=== PATIENT | male | born 1985 | race Caucasian/White ===

== ENCOUNTER 2016-08-04 18:26 | Emergency (ER) | payer BC ==
[2016-08-04 20:02] LABS: HEMOGLOBIN 15.1 gm/dl (14.0-17.5); RED BLOOD COUNT 4.91 M/UL (4.20-5.50); WHITE BLOOD COUNT 12.7 K/UL (4.5-11.0)
[2016-08-04 20:33] LABS: BUN/CREATININE RATIO 8 (0-10)
== END 2016-08-05 00:05 | disposition short-term general hospital (02) ==
LOC: ER1 18:26
PROVIDERS: Family Medicine
DX: R55 Syncope and collapse (principal); F17.200 Nicotine dependence, unspecified, uncomplicated; Z79.891 Long term (current) use of opiate analgesic
CPT/HCPCS: 70450; 71010; 80053; 80307; 81001; 82550; 82553; 83874; 84146; 84484; 85025; 93005; 99285

== ENCOUNTER 2021-01-12 19:24 | Emergency (ER) | payer SELFPAY ==
[~2021-01-12 19:24] MED LIST: CLEOCIN 150MG150 MG PO
[2021-01-12] MEDS ORDERED: PROAIR HFA8.5 GM INH (23:44)
[2021-01-12] MEDS ORDERED: AMOXICILLIN875 MG PO (23:44)
[2021-01-12] MEDS ORDERED: IBUPROFEN800 MG PO (23:45)
== END 2021-01-12 23:57 | disposition home or self-care (01) ==
LOC: ER1 19:24
DX: J02.0 Streptococcal pharyngitis (principal); Z90.89 Acquired absence of other organs; F17.200 Nicotine dependence, unspecified, uncomplicated; Z20.822 Contact with and (suspected) exposure to COVID-19
CPT/HCPCS: 71045; 87081; 87880; 99284; U0002